=== PATIENT | female | born 1960 | race Two or more races ===

== ENCOUNTER 2018-04-27 13:07 | Emergency (ER) | payer OTHER ==
[~2018-04-27] VITALS: Ht 172.7 cm; Wt 97.5 kg
[~2018-04-27 13:07] MED LIST: AMBIEN10 MG PO; ATIVAN0.5 MG PO; CIPRO500 MG PO; CIPRO750 MG PO; COZAAR50 MG; Colace 100MG PO; DIOVAN HCT 160-1 TA1 PO; GUAIFENESI100 MG/52 PO; HYDROXYZINE HCL10 MG PO; INTESTINEX680 MG PO; LEVAQUIN750 MG PO; LEVSIN/SL0.125 MG SL; LEVSIN0.125 MG PO; LORCET 10/650 T1 TAB PO; MACROBID 100 M100 MG PO; NEURONTIN PO; OMEPRAZOLE20 MG PO; PERCOCET 5/3251 TAB PO; PROSOM2 MG PO; PROTONIX40 MG PO; PYRIDIUM200 MG PO; TAGAMET800 MG PO; TUSSIONEX PENNKI5 ML PO; ZANTAC300 MG PO; ZOFRAN4 MG PO; ZOLOFT50 MG PO
== END 2018-04-27 16:02 | disposition home or self-care (01) ==
LOC: ER 13:07
DX: M75.52 Bursitis of left shoulder (principal); M25.512 Pain in left shoulder

== ENCOUNTER 2025-05-07 12:43 | Emergency (ER) | payer OTHER ==
[~2025-05-07] VITALS: Ht 170.2 cm; Wt 104.3 kg
[2025-05-07] MEDS ORDERED: HYDROCHLOROTHIA25 MG PO (14:03)
[2025-05-07] MEDS ORDERED: ZOLPIDEM TARTRA10 MG PO (14:03)
[2025-05-07] MEDS ORDERED: AMLODIPINE BESY10 MG PO (14:03)
[2025-05-07] MEDS ORDERED: CLOPIDOGREL BIS75 MG PO (14:03)
[2025-05-07] MEDS ORDERED: GABAPENTIN600 MG PO (14:04)
[2025-05-07] MEDS ORDERED: PANTOPRAZOLE SO40 MG PO (14:04)
[2025-05-07] MEDS ORDERED: VALSARTAN320 MG PO (14:04)
[2025-05-07] MEDS ORDERED: METOPROLOL SUC100 MG PO (14:04)
[2025-05-07] MEDS ORDERED: CYCLOBENZAPRINE10 MG PO (14:05)
[2025-05-07 14:26] VITALS: BP 100/60; O2SAT 95
[2025-05-07] MEDS ORDERED: MORPHINE SULFATE 4 MG/ML VIAL IV ONE (15:30)
[2025-05-07] MEDS ORDERED: ORPHENADRINE CITRATE 30 MG/ML AMPUL IM ONE (15:30)
[2025-05-07 15:56] LABS: BASO % 0.5 % (0.1-1.2); EOS # 0.03 (0.04-0.54); EOS % 0.3 % (0.7-7.0); HEMATOCRIT 39.4 % (34.1-44.9); HEMOGLOBIN 13.7 g/dL (11.2-15.7); LYMPH # 1.37 (1.18-3.74); LYMPH % 15.5 % (19.3-53.1); MEAN CORPUSCULAR HEMOGLOBIN 29.4 pg (25.6-32.2); MONO # 0.51 (0.24-0.82); MONO % 5.8 % (4.7-12.5); NEUT # 6.86 (1.56-6.13); NEUT % 77.4 % (34.0-71.1); PLATELET COUNT 187 K/uL (163-369); RED BLOOD COUNT 4.66 M/uL (3.93-5.22)
[2025-05-07] MEDS ORDERED: ORPHENADRINE CITRATE 30 MG/ML AMPUL ONE (15:58)
[2025-05-07] MEDS ORDERED: ACETAMINOPHEN WITH CODEINE 1 UDTAB TABLET PO STA (19:43)
[2025-05-07] MEDS ORDERED: TRAMADOL HCL 50 MG TABLET PO STA (19:43)
[2025-05-07 19:48] LABS: URINE APPEARANCE Cloudy; URINE BILIRRUBIN Negative (NEGATIVE); URINE BLOOD Negative; URINE COLOR Yellow; URINE GLUCOSE Negative (NEGATIVE); URINE KETONE Negative (NEGATIVE); URINE LEUKOCYTE Small; URINE NITRATE Negative; URINE PROTEIN Trace (NEGATIVE)
[2025-05-07 19:51] LABS: URINE BACTERIA 390.4 uL (0.0-1933); URINE RBC 19.2 uL (0.0-20.8); URINE WBC 75.9 uL (0.0-23.2)
[2025-05-07 20:08] LABS: TYPE CELLS SQUAMOUS
== END 2025-05-07 23:55 | disposition home or self-care (01) ==
LOC: ER 12:43
PROVIDERS: Emergency Medicine
DX: M54.50 Low back pain, unspecified (principal); I49.8 Other specified cardiac arrhythmias; I10 Essential (primary) hypertension; Z98.890 Other specified postprocedural states